=== PATIENT | female | born 1970 | race Caucasian/White ===

== ENCOUNTER 2017-04-27 18:25 | Emergency (ER) | payer OTHER ==
[~2017-04-27] VITALS: Ht 154.9 cm; Wt 59.0 kg
[~2017-04-27 18:25] MED LIST: ALBUTEROL0.09 MG/A1 INH; ALPRAZOLAM1 MG PO; ATIVAN1 M1 PO; CEFUROXIME AXE500 MG PO; COMBIVIR PO; DIFLUCAN150 MG PO; DILAUDID2 M1 PO; FLAG500 PO; FLOMAX(MONOGRA0.4 MG PO; FLOMAX0.4 M1 PO; FOLIC ACID1 M1 PO; GABAPENTIN300 M2 PO; HYDROCODONE/ACE1 TA1 PO; ISENTRESS400 M1 PO; ISENTRESS400 MG PO; LAMIVUDINE-ZID1 EACH PO; MASON NATURAL2000 IU PO; ONE DAILY MULT1 EAC2 PO; OXYCODONE HCL5 M1 PO; OXYCODONE HYDRO10 M1 PO; PERCOCET 325 MG1 TA2 PO; PREDNISONE10 MG PO; QUETIAPINE FUM100 M1 PO; QUETIAPINE FUMA25 M1 PO; VITAMIN B-1100 MG PO; ZITHROMAX Z-PA250 M1 PO; ZOFRAN ODT4 MG PO
--- NOTE | 2017-04-27 20:59 | ED MVC/FALL/TRAUMA COMPLAINT ---
History of Present Illness General Chief Complaint: Fall Stated Complaint: SLIP ON ICE, HEAD STRIKE,LOW BACK PAIN,DIZZY Source: patient, family Exam Limitations: no limitations Vital Signs & Intake/Output Vital Signs & Intake/Output Vital Signs Date Time Temp Pulse Resp B/P B/P Pulse O2 O2 Flow FiO2 Mean Ox Delivery Rate 04/27 1900 98.5 04/27 1849 98.5 110 18 111/76 100 Room Air Room Air Allergies Coded Allergies: Sulfa (Sulfonamide Antibiotics) (TURNS BRIGHT RED AND BLOWS UP 02/07/16) Reconcile Medications Alprazolam 1 MG TABLET 1 TAB PO BID PRN ANXIETY-FLIGHT (Reported) Cyclobenzaprine HCl 10 MG TABLET 1 TAB PO QPM PRN muscle strain Lamivudine/Zidovudine (Lamivudine-Zidovudine Tablet) 150 MG-300 MG TABLET 1 TAB PO BID HAART (Reported) Oxycodone HCl 5 MG TABLET 1 TAB PO BIDP PRN pain Quetiapine Fumarate (Seroquel) 50 MG TABLET 1 TAB PO QAM ANXIETY (Reported) Quetiapine Fumarate 100 MG TABLET 100 MG PO AT BEDTIME ANXIETY Raltegravir Potassium (Isentress) 400 MG TABLET 1 TAB PO BID HAART (Reported) Triage Note: PT TO ED S/P SLIP AND FALL ON ICE IN DRIVEWAY. PT C/O MID BACK, RIGHT SIDE, AND BACK OF HEAD -LOC. Triage Nurses Notes Reviewed? yes Onset: Abrupt Duration: hour(s): Timing: single episode today Severity: severe Severity Numbers: 10 Injuries/Fall Location: head, back Method of Injury: fall Loss of Consciousness: no loss of consciousness LMP (ages 10-50): hysterectomy : No Patient currently breastfeeds: No HPI: 46yo female presents to emergency department complaining of fall prior to arrival. Patient states that she walking down the driveway when she slipped and fell backward landing on her right lower back and the back of her head. Patient did not black out or lose consciousness. Patient complaining of severe pain in the lower back, 10/10, worse with movement. Patient also complaining of generalized headache and dizziness. Patient reports blurred vision since the fall. Patient also reports tingling sensation to left fingers. The patient denies neck pain, abdominal pain, chest pain, dyspnea, lower extremity pain. Past History Travel History Traveled to [place] past 21 day No Medical History Any Pertinent Medical History? 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 Opioid abuse History of MRSA: Yes History of VRE: Yes History of CDIFF: No Surgical History Surgical History: hysterectomy Psychosocial History Who do you live with Patient/Self Services at Home None What is your primary language Kiswahili Tobacco Use: Current Daily Use Daily Tobacco Use Amount/Type: => 5 Cigarettes daily ETOH Use: denies use Illicit Drug Use: denies illicit drug use Family History Family History, If Any: Relation not specified for: *No pertinent family history Hx Contributory? No Review of Systems Review of Systems Constitutional: Reports: no symptoms. Eyes: Reports: see HPI. Ears, Nose, Throat, Mouth: Reports: no symptoms. Respiratory: Reports: no symptoms. Cardiovascular: Reports: no symptoms. Gastrointestinal/Abdominal: Reports: no symptoms. Genitourinary: Reports: no symptoms. Musculoskeletal: Reports: see HPI. Skin: Reports: no symptoms. Neurological/Psychological: Reports: see HPI. All Other Systems: Reviewed and Negative Physical Exam Physical Exam General Appearance: well developed/nourished, no apparent distress, alert, awake Head: atraumatic, normal appearance Eyes: Bilateral: normal appearance, PERRL, EOMI. Ears, Nose, Throat, Mouth: hearing grossly normal, moist mucous membrane Neck: normal inspection, supple, full range of motion, no midline tenderness Respiratory: normal breath sounds, no respiratory distress, lungs clear, right lower ribcage tenderness without ecchymosis, swelling, or tenderness Cardiovascular: regular rate/rhythm Peripheral Pulses: 2+ radial (R), 2+ radial (L) Gastrointestinal: normal bowel sounds, soft, non-tender, no organomegaly Back: right lower back tenderness, no ecchymosis or swelling Extremities: normal range of motion Neurologic/Psych: awake, alert, oriented x 3, competitive shopper II-XII nml as tested Skin: intact, normal color, warm/dry Core Measures ACS in differential dx? No CVA/TIA Diagnosis No Sepsis Present: No Sepsis Focused Exam Completed? No Progress Differential Diagnosis: abd injury, C/T/L spine injury, ext injury, ICH, pelvis injury, pnemothorax, spinal cord injury Plan of Care: Orders Procedure Date/time Status URINALYSIS 04/27 2133 Complete Current Medications Sig/Santiago Start time Last Medication Dose Stop Time Status Admin Oxycodone/ 1 TAB ONCE ONE 04/27 2144 UNVr 04/27 Acetaminophen 04/27 (Percocet) Laboratory Tests 04/27/172208: Urine Color YEL, Urine Clarity CLEAR, Urine pH 6.0, Ur Specific [place] 1.025, Urine Protein NEG, Urine Ketones TRACE H, Urine Nitrite NEG, Urine Bilirubin NEG, Urine Urobilinogen 0.2, Ur Leukocyte Esterase SMALL H, Ur Microscopic SEDIMENT EXAMINED, Urine RBC 1-3, Urine WBC RARE, Ur Epithelial Cells FEW, Urine Hemoglobin MOD H, Urine Glucose NEG Patient with right lower back pain, no midline tenderness on physical exam. UA without signs of hematuria. Patient urinating without difficulty here in the emergency department. Ribs x-ray shows no acute fracture or abnormality. Patient is neurologically intact, ambulating care in the emergency Department without difficulty. The patient has stable vital signs, no hypoxia, equal breath sounds bilaterally, suspicion for pneumothorax at this time, rib x-ray is WNL. Head CT scan without acute abnormality. Patient started on muscle relaxer and pain medication. She will follow-up with her primary care physician. Patient will return with worsening symptoms or other concerns. The patient agrees with the plan of care. Diagnostic Imaging: Viewed by Me: Radiology Read, CT Scan. Discussed w/RAD: Radiology Read, CT Scan. Radiology Impression: PATIENT: SCOUT KELLY PRESENT AGE: 46 PATIENT ACCOUNT NO: [id number] : 71 LOCATION: [facility] ORDERING PHYSICIAN: Ivy DUPREE SERVICE DATE: 04/27/17-2133 EXAM TYPE: RAD - XRY-RIBS UNILATERAL-RIGHT EXAMINATION: XR RIBS, RIGHT CLINICAL INFORMATION: Fracture fall onto right side COMPARISON: Chest x-ray April 2014 and March 2013 TECHNIQUE: 3 views of the right ribs were obtained. FINDINGS: Lungs are clear. Linear opacity in the left lower lung region compatible with scarring or recurrent discoid atelectasis unchanged compared to prior Osseous structures are unremarkable. Ribs are intact. No fractures are identified. IMPRESSION: No acute disease. No rib fracture DICTATED BY: Rey Tesfaye MD DATE/TIME DICTATED:04/27/172217 LICENSED LAND SURVEYOR:FELIPE DATE/TIME TRANSCRIBED:04/27/172217 CONFIDENTIAL, DO NOT COPY WITHOUT APPROPRIATE AUTHORIZATION. <Electronically signed in Other Vendor System> SIGNED BY: Rey Tesfaye MD 04/27/172222, PATIENT: SCOUT KELLY PRESENT AGE: 46 PATIENT ACCOUNT NO: [id number] : 71 LOCATION: [facility] ORDERING PHYSICIAN: Ivy DUPREE SERVICE DATE: 04/27/17 EXAM TYPE: CAT - CT HEAD WO IV CONTRAST EXAMINATION: CT HEAD WITHOUT CONTRAST CLINICAL INFORMATION: Intracranial hemorrhage fracture. Fall off the posterior head. COMPARISON: None TECHNIQUE: Contiguous axial imaging was performed from the skull base to vertex without intravenous administration of contrast. DLP: 60 7 mm filling the mGy-cm FINDINGS: There is no evidence of acute intracranial hemorrhage or territorial infarction. No abnormal mass effect or midline shift is seen. Mendez to white matter differentiation is well preserved. No extra-axial fluid collections are identified. The ventricles are normal in size. There is no abnormal attenuation within the brain parenchyma. The osseous structures and soft tissues are normal. The mastoid air cells and visualized portions of the paranasal sinuses are well aerated. IMPRESSION: No acute intracranial pathology. DICTATED BY: Rey Tesfaye MD DATE/TIME DICTATED:04/27/172223 LICENSED LAND SURVEYOR:FELIPE DATE/TIME TRANSCRIBED:04/27/172223 CONFIDENTIAL, DO NOT COPY WITHOUT APPROPRIATE AUTHORIZATION. <Electronically signed in Other Vendor System> SIGNED BY: Rey Tesfaye MD 04/27/172228 Departure Departure Disposition: HOME OR SELF CARE Condition: Stable Clinical Impression Primary Impression: Fall Qualifiers: Encounter type: initial encounter Qualified Code: W19.XXXA - Unspecified fall, initial encounter Secondary Impressions: Back pain Qualifiers: Back pain location: low back pain Chronicity: acute Back pain laterality: right Sciatica presence: without sciatica Qualified Code: M54.5 - Low back pain Headache Qualifiers: Headache type: unspecified Headache chronicity pattern: acute headache Intractability: not intractable Qualified Code: R51 - Headache Referrals: Edna Tracy MD (PCP/Family) Additional Instructions: Take Flexeril as prescribed as needed for muscle spasm. Take Percocet as prescribed as needed for pain, this is a narcotic, can be highly habit-forming and addictive, do not drive or drink alcohol with taking this medication. Follow-up with your primary care physician. Return to the emergency Department with any worsening symptoms or other concerns. Please note that there might be incidental findings in your evaluation that are unrelated to the current emergency department visit. Please notify your primary care doctor about this emergency department visit in order to obtain and review all of the testing performed so that these incidental findings can be monitored as needed. If you had an x-ray performed, please understand that some fractures may not be seen on the initial set of x-rays. If your symptoms persist you might need a repeat set of x-rays to check for such a fracture. If you had a laceration evaluated, please understand that foreign bodies such as glass or wood may not be visible to the naked eye or on plain x-rays. If the wound becomes red, swollen, increasingly more painful or if there is any drainage from the wound, please have it reevaluated by a physician for the possibility of a retained foreign body. If you're unable to follow up as outlined in the discharge instructions please return to the emergency department. Thank you for choosing the [facility] Emergency Department for your care. It was a pleasure to serve you today. Departure Forms: Customer Survey General Discharge Information Prescriptions: Current Visit Scripts Cyclobenzaprine HCl 1 TAB PO QPM PRN muscle strain #10 TAB Oxycodone HCl 1 TAB PO BIDP PRN pain #10 TAB
[2017-04-27] MEDS ORDERED: SEROQUEL50 M1 PO (22:22)
[2017-04-27] MEDS ORDERED: ALPRAZOLAM1 M2 PO (22:23)
--- NOTE | 2017-04-27 22:23 | RADIOLOGY REPORT ---
EXAMINATION: XR RIBS, RIGHT CLINICAL INFORMATION: Fracture fall onto right side COMPARISON: Chest x-ray April 2014 and March 2013 TECHNIQUE: 3 views of the right ribs were obtained. FINDINGS: Lungs are clear. Linear opacity in the left lower lung region compatible with scarring or recurrent discoid atelectasis unchanged compared to prior Osseous structures are unremarkable. Ribs are intact. No fractures are identified. IMPRESSION: No acute disease. No rib fracture
--- NOTE | 2017-04-27 22:29 | CT SCAN REPORT ---
EXAMINATION: CT HEAD WITHOUT CONTRAST CLINICAL INFORMATION: Intracranial hemorrhage fracture. Fall off the posterior head. COMPARISON: None TECHNIQUE: Contiguous axial imaging was performed from the skull base to vertex without intravenous administration of contrast. DLP: 60 7 mm filling the mGy-cm FINDINGS: There is no evidence of acute intracranial hemorrhage or territorial infarction. No abnormal mass effect or midline shift is seen. Mendez to white matter differentiation is well preserved. No extra-axial fluid collections are identified. The ventricles are normal in size. There is no abnormal attenuation within the brain parenchyma. The osseous structures and soft tissues are normal. The mastoid air cells and visualized portions of the paranasal sinuses are well aerated. IMPRESSION: No acute intracranial pathology.
[2017-04-27] MEDS ORDERED: CYCLOBENZAPRINE10 M1 PO (22:42)
[2017-04-27] MEDS ORDERED: OXYCODONE HCL5 M1 PO (22:42)
[2017-04-27 22:52] VITALS: BP 149/81
== END 2017-04-27 22:53 ==
LOC: ERH 18:25
DX: M54.5 Low back pain (principal); R51 Headache
CPT/HCPCS: 71100-RT; 81001

== ENCOUNTER 2017-05-02 19:08 | Emergency (ER) | payer OTHER ==
[~2017-05-02] VITALS: Ht 154.9 cm; Wt 59.0 kg
[~2017-05-02 19:08] MED LIST changes: +ALPRAZOLAM1 M2 PO; +CYCLOBENZAPRINE10 M1 PO; +SEROQUEL50 M1 PO
[2017-05-02 19:24] VITALS: BP 130/84
--- NOTE | 2017-05-02 21:10 | ED NECK/BACK PAIN COMPLAINT ---
History of Present Illness General Chief Complaint: Low Back Pain/Injury Stated Complaint: BACK PAIN Source: patient Exam Limitations: no limitations Vital Signs & Intake/Output Vital Signs & Intake/Output Vital Signs Date Time Temp Pulse Resp B/P B/P Pulse O2 O2 Flow FiO2 Mean Ox Delivery Rate 05/02 2210 98.4 110 18 97 Room Air 05/02 2118 Room Air 05/02 1923 97.3 127 15 130/84 94 Room Air Room Air Allergies Coded Allergies: Sulfa (Sulfonamide Antibiotics) (TURNS BRIGHT RED AND BLOWS UP 05/02/17) Reconcile Medications Alprazolam 1 MG TABLET 1 TAB PO BID PRN ANXIETY-FLIGHT (Reported) Cyclobenzaprine HCl 10 MG TABLET 1 TAB PO TID SPASMS Cyclobenzaprine HCl 10 MG TABLET 1 TAB PO QPM PRN muscle strain Lamivudine/Zidovudine (Lamivudine-Zidovudine Tablet) 150 MG-300 MG TABLET 1 TAB PO BID HAART (Reported) Oxycodone HCl 5 MG TABLET 1-2 TAB PO BIDP PRN pain Oxycodone HCl 5 MG TABLET 1 TAB PO BIDP PRN pain Quetiapine Fumarate (Seroquel) 50 MG TABLET 1 TAB PO QAM ANXIETY (Reported) Quetiapine Fumarate 100 MG TABLET 100 MG PO AT BEDTIME ANXIETY Raltegravir Potassium (Isentress) 400 MG TABLET 1 TAB PO BID HAART (Reported) Triage Note: PT TO ED FOR C/C OF LOWER BACK PAIN SINCE SUNDAY S/P SLIP AND FALL ON SUNDAY AND THEN AGAIN ON SUNDAY. PT HAS BEEN TAKING PERCOCET FOR PAIN AT HOME. PT IS NOW OUT OF MEDS. Triage Nurses Notes Reviewed? yes Onset: Abrupt Duration: day(s): Timing: recent history Quality/Severity: moderate, severe Location: lumbar spine Method of Injury: fall Loss of Consciousness: no loss of consciousness : No Patient currently breastfeeds: No HPI: 46-year-old female comes into the emergency room for right-sided back pain. Patient reports that she was seen here on Sunday after a fall outside. She comes in because she fell again on Sunday. Sharp throbbing pain. Pain located on the right side. Worse with any range of motion. She ran out of her pain medication that was prescribed to her. She comes in for further evaluation. Denies any head trauma. Denies any abdominal pain. Denies any radiation of pain down her leg. Denies any numbness or tingling. (Richy Barber) Past History Travel History Traveled to [place] past 21 day No Medical History Any Pertinent Medical History? 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 Opioid abuse History of MRSA: Yes History of VRE: Yes History of CDIFF: No Surgical History Surgical History: hysterectomy Psychosocial History Who do you live with Patient/Self Services at Home None What is your primary language Singaporean Tobacco Use: Quit >30 days ago ETOH Use: denies use Illicit Drug Use: denies illicit drug use Family History Family History, If Any: Relation not specified for: *No pertinent family history Hx Contributory? No (Richy Barber) Review of Systems Review of Systems Constitutional: Reports: no symptoms. Eyes: Reports: no symptoms. Ears, Nose, Throat, Mouth: Reports: no symptoms. Respiratory: Reports: no symptoms. Cardiovascular: Reports: no symptoms. Gastrointestinal/Abdominal: Reports: no symptoms. Musculoskeletal: Reports: see HPI. Skin: Reports: no symptoms. Neurological/Psychological: Reports: no symptoms. All Other Systems: Reviewed and Negative (Richy Barber) Physical Exam Physical Exam General Appearance: well developed/nourished, mild distress Head: atraumatic Eyes: Bilateral: normal appearance. Ears, Nose, Throat, Mouth: hearing grossly normal, moist mucous membrane Neck: normal inspection Respiratory: normal breath sounds, no respiratory distress Cardiovascular: regular rate/rhythm Back: normal inspection, decreased range of motion, SOFT TISSUE TENDERNESS RIGHT LOWER BACK Extremities: normal range of motion Motor: Deficit L4 Right: No Deficit L4 Left: No Deficit L5 Right: No Deficit L5 Left: No Deficit S1 Right: No Deficit S1 Right: No Neurologic/Psych: awake, alert, oriented x 3, normal mood/affect Skin: intact, normal color, warm/dry Core Measures CVA/TIA Diagnosis: No (Richy Barber) Progress Differential Diagnosis: cauda equina syn, herniated disc, myofascial strain, sciatica, muscle strain Plan of Care: Orders Procedure Date/time Status XRY-LUMBOSACRAL SPINE 4 VIEWS 05/02 2109 Active Diagnostic Imaging: Viewed by Me: Radiology Read. Discussed w/RAD: Radiology Read. Radiology Impression: PATIENT: SCOUT KELLY PRESENT AGE: 46 PATIENT ACCOUNT NO: [id number] : 71 LOCATION: [facility] ORDERING PHYSICIAN: Richy DUPREE SERVICE DATE: 05/02/17 EXAM TYPE : RAD - XRY-LUMBOSACRAL SPINE 4 VIEWS EXAMINATION: XR LUMBOSACRAL SPINE CLINICAL INFORMATION: Lower back pain after fall COMPARISON: None TECHNIQUE: 4 views of the lumbosacral spine were obtained. FINDINGS: No fracture or subluxation. Vertebral bodies and posterior elements are anatomically aligned. Vertebral body heights and intervertebral disc spaces are maintained. The sacroiliac joints and pubic symphysis are intact. The bowel gas pattern is unremarkable. IMPRESSION: No fracture or malalignment. DICTATED BY: Weston Valera MD DATE/TIME DICTATED:05/02/172144 CRITICAL CARE CNS:FELIPE DATE/TIME TRANSCRIBED:2144 CONFIDENTIAL, DO NOT COPY WITHOUT APPROPRIATE AUTHORIZATION. < Electronically signed in Other Vendor System> SIGNED BY: Weston Valera MD 05/02/172147 (Richy Barber) Departure Departure Disposition: HOME OR SELF CARE Condition: Stable Clinical Impression Primary Impression: Strain of muscle, fascia and tendon of lower back, sequela Referrals: Edna Tracy MD (PCP/Family) Additional Instructions: Take oxycodone and Flexeril as prescribed. Moist heat. Follow-up with PCP. Return if any other concerns worsening symptoms. Please go over all results of today's visit with your primary care doctor. Contact your primary care doctor to let them know you were here in the emergency room. There may be nonspecific findings which may not be related to your visit today here in the emergency room but may require further evaluation and chronic monitoring by your primary care doctor. If you had a laceration today the chance of foreign body always remains. You should follow-up with your primary care doctor for recheck in 3-5 days for a wound check. If you had an x-ray done there is a chance that a fracture could have been missed on initial read and you should follow-up with your primary care doctor for repeat x-rays if symptoms persist. If your blood pressure was elevated here in the emergency room please have rechecked by kyle primary care doctor within the next 48. If you were prescribed a narcotic here in the emergency room or any type of controlled substances you're not allowed to drive while taking this medication or operate any type of heavy machinery. Narcotics can make you feel lightheaded dizziness nausea and can cause constipation. You may need to tow picker a stool softener. Thank you for choosing [facility] emergency room. Please return to the emergency room immediately if you have any other concerns worsening of symptoms. Departure Forms: Customer Survey General Discharge Information Prescriptions: Current Visit Scripts Oxycodone HCl 1-2 TAB PO BIDP PRN pain #10 TAB Cyclobenzaprine HCl 1 TAB PO TID #30 TAB (Richy Barber) PA/GENERATION TECHNICIAN Co-Sign Statement Statement: ED Attending supervision documentation- I saw and evaluated the patient. I have also reviewed all the pertinent lab results and diagnostic results. I agree with the findings and the plan of care as documented in the PA's/GENERATION TECHNICIAN's documentation. x I have reviewed the ED Record and agree with the PA's/GENERATION TECHNICIAN's documentation. [] Additions or exceptions (if any) to the PAs/GENERATION TECHNICIAN's note and plan are summarized below: [] (Mona NICHOLAS,Vahid)
--- NOTE | 2017-05-02 21:48 | RADIOLOGY REPORT ---
EXAMINATION: XR LUMBOSACRAL SPINE CLINICAL INFORMATION: Lower back pain after fall COMPARISON: None TECHNIQUE: 4 views of the lumbosacral spine were obtained. FINDINGS: No fracture or subluxation. Vertebral bodies and posterior elements are anatomically aligned. Vertebral body heights and intervertebral disc spaces are maintained. The sacroiliac joints and pubic symphysis are intact. The bowel gas pattern is unremarkable. IMPRESSION: No fracture or malalignment.
[2017-05-02] MEDS ORDERED: OXYCODONE HCL5 M1 PO (21:58)
[2017-05-02] MEDS ORDERED: CYCLOBENZAPRINE10 M1 PO (21:58)
== END 2017-05-02 22:11 ==
LOC: ERH 19:08
DX: S39.012A Strain of muscle, fascia and tendon of lower back, initial encounter (principal); W19.XXXA Unspecified fall, initial encounter; Y92.9 Unspecified place or not applicable; Y93.9 Activity, unspecified
CPT/HCPCS: 72110